=== PATIENT | male | born 1960 | race Caucasian/White ===

== ENCOUNTER 2019-05-11 04:50 | Emergency (ER) | payer BC, OTHER ==
[2019-05-11] MEDS ORDERED: Ketorolac *IM* INJ* 60 MG/2 ML VIAL IM ONE (05:28)
--- NOTE | 2019-05-11 05:39 | ED ---
Upper Extremity Pain - HPI Summary HPI Summary: 59 year old male presents to the ED with a chief complaint of left shoulder pain starting on 05/05/19. Patient states that it hurts to move, to lie down, or to lift his arm to his head. Pain is worse at night. Ibuprofen, ice packs, or heat compresses do not alleviate the pain. He states that his ROM is limited, especially when raising his arm. Patient denies SOB, chest pain, numbness or paresthesia. He has never had similar symptoms before. History of fused lumbar vertebrae, right collarbone surgery. Patient does not smoke tobacco or do recreational drugs, but drinks alcohol. History of HLD. No history of heart disease. Family history of cancer and CAD. - History of Current Complaint Chief Complaint: EDShoulderClavicleInj Stated Complaint: SHOULDER PAIN PER PT Time Seen by Provider: 05/11/19 04:58 Hx Obtained From: Patient Mechanism Of Injury: Unknown Onset/Duration: Started Days Ago, Still Present Timing: Constant Severity Initially: Moderate Severity Currently: Severe Pain Location: Collar, Shoulder Character: Sharp Aggravating Factor(s): Nothing - rest, Movement, Lifting, Flexion, Extension Alleviating Factor(s): Nothing Associated Signs & Symptoms: Negative: Numbness/Tingling, Chest Pain, SOB - Allergies/Home Medications Allergies/Adverse Reactions: Allergies Allergy/AdvReac Type Severity Reaction Status Date / Time MS Codeine [Codeine] Allergy Intermediate Nausea And Verified 08/19/15 13:23 Vomiting MS Iodine [Iodine] Allergy Mild Rash Verified 08/19/15 13:23 Home Medications: Home Medications Atorvastatin* [Lipitor 40 MG*] 1 tab PO 08/18/12 [History Confirmed 08/18/12] LORazepam TAB(*) [Ativan 1 MG TAB (*)] 1 mg PO Q6H PRN #20 tab MDD 4 08/19/15 [ Rx] oxyCODONE/Acetamin 5/325 MG* [Percocet 5/325 TAB*] 1 tab PO Q6H PRN #20 tab MDD 4 08/19/15 [Rx] predniSONE 10 mg TAB [Deltasone 10 MG TAB*] 30 mg PO DAILY #9 tab 08/19/15 [Rx] Diazepam TAB(*) [Valium TAB(*)] 10 mg PO Q8H PRN #15 tab MDD 3 05/11/19 [Rx] PMH/Surg Hx/FS Hx/Imm Hx Endocrine/Hematology History: Denies: Hx Anticoagulant Therapy Cardiovascular History: Reports: Hx Hypertension - Cancer History Cancer Type, Location and Year: PROSTATE IN 2006 - Surgical History Surgery Procedure, Year, and Place: CARDIAC CATH Infectious Disease History: No Infectious Disease History: Denies: Traveled Outside the [place] in Last 30 Days - Family History Known Family History: Positive: Cardiac Disease, Other - cancer - Social History Alcohol Use: Occasionally Substance Use Type: Reports: None Smoking Status (MU): Never Smoked Tobacco Review of Systems - ROS Summary Review of Systems Summary: Home Medications Medication Instructions Recorded Confirmed Type Atorvastatin* [Lipitor*] 1 tab PO 08/18/12 08/18/12 History LORazepam TAB(*) [Ativan TAB(*)] 1 mg PO Q6H PRN #20 tab MDD 4 08/19/15 Rx oxyCODONE/Acetamin 5/325 MG* 1 tab PO Q6H PRN #20 tab MDD 4 08/19/15 Rx [Percocet 5/325 TAB*] predniSONE 10 mg TAB [Deltasone 10 30 mg PO DAILY #9 tab 08/19/15 Rx MG TAB*] Diazepam TAB(*) [Valium TAB(*)] 10 mg PO Q8H PRN #15 tab MDD 3 05/11/19 Rx Negative: Chest Pain Negative: Shortness Of Breath Positive: Arthralgia - left shoulder, Decreased ROM Negative: Paresthesia, Numbness All Other Systems Reviewed And Are Negative: Yes Physical Exam - Summary Physical Exam Summary: General: Well-developed, Well-nourished male. Mild discomfort at rest. HEENT: Normocephalic, Atraumatic. Eyes: Conjuctiva normal, PERRL. Ears: TMs within normal limits. Nares: (-) discharge, (-) erythema. Oropharynx: Clear, mucous membranes moist, (-) exudates. Neck: Soft, FROM, (-) lymphadenopathy, (-) thyromegaly, (-) JVD. Cardiovascular: Normal sinus rhythm, (-) murmur. Lungs: Clear to auscultation bilaterally (-) wheezes, (-) rales, (-) rhonchi. Abdomen: Soft, non-tender, non-distended, (-) organomegaly, normal bowel sounds. Back: (-) CVA tenderness Extremities: No edema. Left arm has normal pulse, strength, and sensation. Good passive ROM. Limited active ROM secondary to pain. Tenderness of anterior, lateral and posterior shoulder. Tenderness of left trapezius. Skin: Warm, dry, (-) rash. Neuro: Alert and oriented x3, no focal deficits. Psychiatric: Mood normal, affect normal. Triage Information Reviewed: Yes Vital Signs On Initial Exam: Initial Vitals Temp Pulse Resp BP Pulse Ox 97.3 F 90 20 181/115 97 05/11/19 04:52 05/11/19 04:52 05/11/19 04:52 05/11/19 04:52 05/11/19 04:52 Vital Signs Reviewed: Yes Procedures - Sedation Patient Received Moderate/Deep Sedation with Procedure: No Diagnostics - Vital Signs Vital Signs Temp Pulse Resp BP Pulse Ox 05/11/19 04:52 97.3 F 90 20 181/115 97 - Laboratory Lab Statement: Any lab studies that have been ordered have been reviewed, and results considered in the medical decision making process. - Radiology Shoulder XR Radiology Interpretation Completed By: ED Physician Summary of Radiographic Findings: No acute processes. An ED physician has reviewed this report. Pending official read. Re-Evaluation - Re-Evaluation First Eval Re-Evaluation Time: 06:35 Change: Improved Comment: Patient is feeling better after diazepam and NSAID. Course/Dx - Course Course Of Treatment: 59-year-old male presents with left shoulder pain. 4-5 days. Nothing traumatic that he remembers. He is currently not working. He denies any tingling numbness of the arm or hand. No decreased weakness. No deformity. He has had collarbone surgery and lumbar surgery before. This is evident difficulty sleeping. Pain is worse at night when he tries to get comfortable. Any movement hurts it. He states he can take comfortable for about 15 minutes and then the pain returns. Has been using ice and heat. Has been trying ibuprofen. No relief. No chest pain or shortness of breath. On physical exam he has global tenderness around the shoulder. Left trapezius muscle. Spasm present. Neck has full range of motion. No tenderness over the spinous processes. Normal strength sensation and reflexes pulse of the left upper arm. Shoulder x-ray within normal limits. Patient given Toradol IM and ice packs to the area. Had some relief with that. We'll also start Valium 10 mg 3 times a day for 5 days. Follow-up with PCP. Follow-up sooner for any worsening symptoms. During ED course, patient was given diazepam and ketorolac. - Diagnoses Provider Diagnoses: Shoulder pain Discharge ED - Sign-Out/Discharge Documenting (check all that apply): Patient Departure - discharge home - Discharge Plan Condition: Stable Disposition: HOME Prescriptions: Diazepam TAB(*) [Valium TAB(*)] 10 mg PO Q8H PRN #15 tab MDD 3 PRN Reason: Pain - Severe Patient Education Materials: Shoulder Pain (ED) Referrals: [facility] [Outside] Additional Instructions: Follow up with [facility] in 2-3 days. Return to the Emergency Department if you experience new or worsened symptoms. Try ice or heat compresses, as well as ibuprofen, for the pain. - Billing Disposition and Condition Condition: STABLE Disposition: Home - Attestation Statements Document Initiated by Scribe: Yes Documenting Scribe: Evan Nixon Provider For Whom Lara is Documenting (Include Credential): Dr. Marla George Scribe Attestation: IEvan, scribed for Dr. Marla George on 05/11/19 at 0648. Scribe Documentation Reviewed: Yes Provider Attestation: The documentation as recorded by the scribEvan saucedo accurately reflects the service I personally performed and the decisions made by me, Dr. Marla George Status of Scribe Document: Viewed
[2019-05-11] MEDS ORDERED: Diazepam TAB(*) 5 MG PO ONE (06:34)
[2019-05-11 07:07] VITALS: BP 160/114
== END 2019-05-11 07:06 | disposition home or self-care (01) ==
LOC: ED 04:50
DX: M25.512 Pain in left shoulder (principal); E78.5 Hyperlipidemia, unspecified; Z88.6 Allergy status to analgesic agent; I10 Essential (primary) hypertension; Z79.52 Long term (current) use of systemic steroids; Z85.46 Personal history of malignant neoplasm of prostate
CPT/HCPCS: 99282; A9270-GY; J1885

== ENCOUNTER 2019-05-19 22:30 | Emergency (ER) | payer BC ==
[2019-05-19] MEDS ORDERED: Bacitracin OINTMENT* 0.5% 0.5 oz TUBE TOPICAL ONE (23:19)
[2019-05-19] MEDS ORDERED: DOXYcycline CAP(*) 100 MG PO ONE (23:20)
--- NOTE | 2019-05-19 23:21 | ED ---
Skin Complaint - HPI Summary HPI Summary: Patient complains of tick bite to left lower back. Patient states he was working in the yard yesterday and today. Tick was found today. attempted to remove tick, but was unable to remove all of tick. Patient presents for removal of remainder of tick. Denies any other symptoms, pain or injury. - History of Current Complaint Chief Complaint: EDRashSkinAbscess Time Seen by Provider: 05/19/19 23:01 Stated Complaint: TICK ON BACK PER PT Hx Obtained From: Patient Onset/Duration: Started Hours Ago Skin Exposure Onset/Duration: Hours Ago Current Severity: None Pain Intensity: 0 Pain Scale Used: 0-10 Numeric Aggravating Symptom(s): Nothing Alleviating Symptom(s): Nothing Associated Signs & Symptoms: Negative - Allergy/Home Medications Allergies/Adverse Reactions: Allergies Allergy/AdvReac Type Severity Reaction Status Date / Time MS Codeine [Codeine] Allergy Intermediate Nausea And Verified 05/19/19 22:32 Vomiting MS Iodine [Iodine] Allergy Mild Rash Verified 05/19/19 22:32 Home Medications: Home Medications Atorvastatin* [Lipitor 40 MG*] 1 tab PO 08/18/12 [History Confirmed 08/18/12] LORazepam TAB(*) [Ativan 1 MG TAB (*)] 1 mg PO Q6H PRN #20 tab MDD 4 08/19/15 [ Rx] oxyCODONE/Acetamin 5/325 MG* [Percocet 5/325 TAB*] 1 tab PO Q6H PRN #20 tab MDD 4 08/19/15 [Rx] predniSONE 10 mg TAB [Deltasone 10 MG TAB*] 30 mg PO DAILY #9 tab 08/19/15 [Rx] PMH/Surg Hx/FS Hx/Imm Hx Endocrine/Hematology History: Denies: Hx Anticoagulant Therapy Cardiovascular History: Reports: Hx Hypertension History: Denies: Hx Dialysis Sensory History: Denies: Hx Eye Prosthesis Opthamlomology History: Denies: Hx Legally Blind EENT History: Denies: Hx Deafness Neurological History: Denies: Hx Dementia - Cancer History Cancer Type, Location and Year: PROSTATE IN 2006 - Surgical History Surgery Procedure, Year, and Place: CARDIAC CATH - Immunization History Immunizations Up to Date: Yes Infectious Disease History: No Infectious Disease History: Denies: Traveled Outside the [place] in Last 30 Days - Family History Known Family History: Positive: Cardiac Disease, Other - cancer - Social History Alcohol Use: Occasionally Substance Use Type: Reports: None Smoking Status (MU): Never Smoked Tobacco Review of Systems Constitutional: Negative Eyes: Negative ENT: Negative Cardiovascular: Negative Respiratory: Negative Gastrointestinal: Negative Genitourinary: Negative Musculoskeletal: Negative Skin: Other Neurological/Mental Status: Negative Psychological: Normal All Other Systems Reviewed And Are Negative: Yes Physical Exam - Summary Physical Exam Summary: Small area of erythema with central area with likely partial tick body in left flank. No bull's-eye rash. Triage Information Reviewed: Yes Vital Signs On Initial Exam: Initial Vitals Temp Pulse Resp BP Pulse Ox 97.7 F 105 15 155/112 96 05/19/19 22:31 05/19/19 22:31 05/19/19 22:31 05/19/19 22:31 05/19/19 22:31 Vital Signs Reviewed: Yes Appearance: Positive: Well-Appearing Skin: Positive: Warm Head/Face: Positive: Normal Head/Face Inspection Eyes: Positive: Normal Neck: Positive: Supple Respiratory/Lung Sounds: Positive: Clear to Auscultation Cardiovascular: Positive: Normal Abdomen Description: Positive: Nontender Musculoskeletal: Positive: Normal Neurological: Positive: Normal Psychiatric: Positive: Normal AVPU Assessment: Alert - Sheridan Coma Scale Best Eye Response: 4 - Spontaneous Best Motor Response: 6 - Obeys Commands Best Verbal Response: 5 - Oriented Coma Scale Total: 15 Procedures - Sedation Patient Received Moderate/Deep Sedation with Procedure: No - Incision and Drainage 1 Site: left flank Anesthesia: Local Instrument(s): Scalpel - head of tick was removed using a scalpel and lidocaine 1%. Diagnostics - Vital Signs Vital Signs Temp Pulse Resp BP Pulse Ox 05/19/19 22:31 97.7 F 105 15 155/112 96 - Laboratory Lab Statement: Any lab studies that have been ordered have been reviewed, and results considered in the medical decision making process. Course/Dx - Course Course Of Treatment: Patient complains of tick bite to left lower back. Patient states he was working in the yard yesterday and today. Tick was found today. attempted to remove tick, but was unable to remove all of tick. Patient presents for removal of remainder of tick. Denies any other symptoms, pain or injury. Vital signs within normal limits. Partial tick body removed. - Diagnoses Provider Diagnoses: Tick bite of back Discharge ED - Sign-Out/Discharge Documenting (check all that apply): Patient Departure - Discharge Plan Condition: Stable Disposition: HOME Patient Education Materials: Tick Bite (ED) Referrals: Oziel Phan MD. [Primary Care Provider] - Additional Instructions: Keep wound clean and dry. Cover with antibiotic ointment until healed. Return to the ED for any worsening symptoms. - Billing Disposition and Condition Condition: STABLE Disposition: Home
[2019-05-19 23:48] VITALS: BP 136/92
== END 2019-05-19 23:47 | disposition home or self-care (01) ==
LOC: ED 22:30
DX: S30.860A Insect bite (nonvenomous) of lower back and pelvis, initial encounter (principal); W57.XXXA Bitten or stung by nonvenomous insect and other nonvenomous arthropods, initial encounter; Y92.007 Garden or yard of unspecified non-institutional (private) residence as the place of occurrence of the external cause; I10 Essential (primary) hypertension; Z85.46 Personal history of malignant neoplasm of prostate; Z79.899 Other long term (current) drug therapy; Z88.5 Allergy status to narcotic agent; Z91.041 Radiographic dye allergy status
CPT/HCPCS: 99281; A9270-GY